=== PATIENT | female | born 1985 | race Asian ===

== ENCOUNTER 2017-05-19 21:18 | Emergency (ER) | payer OTHER ==
[~2017-05-19] VITALS: Wt 55.0 kg
--- NOTE | 2017-05-19 21:53 | ERD ---
ER Documentation Chief Complaint Date/Time DATE: 05/19/17 TIME: 21:50 Chief Complaint chest pain on and off x 1 day HPI 31-year-old female otherwise healthy comes in with left-sided chest pain that has been intermittent for the past day. Patient stated it has been intermittent , worsened this evening after she had washed the dishes and describes as 10 out of 10 pain that is in the left chest and diffuse. It starts in the left upper chest and states it goes down to her left lower chest. It is sharp, and worse with any breathing or chest movement. She denies trauma, hemoptysis, fever or cough. She is PERC negative. ROS All systems reviewed and are negative except as per history of present illness. Medications Home Meds Active Scripts Ibuprofen* (Motrin*) 600 Mg Tab, 600 MG PO Q6, #30 TAB Prov:DOROTHY JUAREZ PA-C 05/19/17 Allergies Allergies: Coded Allergies: No Known Drug Allergies (Verified Allergy, Unknown, 05/19/17) PMhx/Soc Medical and Surgical Hx: pt denies Medical Hx History of Surgery: Yes (left wrist ganglian cyst removal ) Anesthesia Reaction: No Hx Alcohol Use: No Hx Substance Use: No Hx Tobacco Use: No Smoking Status: Never smoker Physical Exam Vitals Vital Signs Date Time Temp Pulse Resp B/P Pulse Ox O2 Delivery O2 Flow Rate FiO2 05/20/17 00:10 97.5 70 12 100/54 98 Room Air 05/19/17 21:24 99.1 94 20 124/57 100 Physical Exam General: Well-developed, well-nourished. The patient appears in no acute distress. HEENT: Head is normocephalic, atraumatic. No scleral icterus. Neck: Supple. Nontender. Lungs: Clear to auscultation. Normal air movement. Heart: Regular rate and rhythm. S1 and S2 are normal. No murmurs, gallops, or rubs. Abdomen: Soft, nontender, nondistended. Bowel sounds are normoactive. Extremities: No clubbing or cyanosis. Normal pulses. Moving extremities x 4. No weakness. Neurologic: Alert and oriented 3. No focal deficits. Skin: Normal turgor. No rash or lesions. Psych: Mildly anxious appearing. Result Diagram: 05/19/17214905/19/172149 Results 24 hrs Laboratory Tests Test 05/19/17 21:50 05/19/17 22:00 White Blood Count 6.610^3/ul Red Blood Count 4.6110^6/ul Hemoglobin 12.5g/dl Hematocrit 38.3% Mean Corpuscular Volume 83.1fl Mean Corpuscular Hemoglobin 27.1pg Mean Corpuscular Hemoglobin Concent 32.6g/dl Red Cell Distribution Width 12.5% Platelet Count 08671^3/UL Mean Platelet Volume 9.1fl Neutrophils % 62.8% Lymphocytes % 26.6% Monocytes % 7.1% Eosinophils % 2.4% Basophils % 0.8% Nucleated Red Blood Cells % 0.0/100WBC Neutrophils # 4.110^3/ul Lymphocytes # 1.810^3/ul Monocytes # 0.510^3/ul Eosinophils # 0.210^3/ul Basophils # 0.110^3/ul Nucleated Red Blood Cells # 0.010^3/ul D-Dimer 314.94ng/ml D-Dimer Comment Sodium Level 137mmol/L Potassium Level 4.0mmol/L Chloride Level 103mmol/L Carbon Dioxide Level 26mmol/L Anion Gap 12 Blood Urea Nitrogen 18mg/dl Creatinine 1.03mg/dl Glucose Level 91mg/dl Calcium Level 9.3mg/dl Total Bilirubin 0.0mg/dl Direct Bilirubin 0.00mg/dl Indirect Bilirubin 0.0mg/dl Aspartate Amino Transf (AST/SGOT) 16IU/L Alanine Aminotransferase (ALT/SGPT) 21IU/L Alkaline Phosphatase 51IU/L Troponin I < 0.012ng/ml Total Protein 7.6g/dl Albumin 4.9g/dl Globulin 2.70g/dl Albumin/Globulin Ratio 1.81 Lipase 413U/L Urine Color STRAW Urine Clarity CLEAR Urine pH 7.0 Urine Specific [place] 1.012 Urine Ketones NEGATIVEmg/dL Urine Nitrite NEGATIVEmg/dL Urine Bilirubin NEGATIVEmg/dL Urine Urobilinogen NEGATIVEmg/dL Urine Leukocyte Esterase NEGATIVELeu/ul Urine Microscopic RBC 1/HPF Urine Microscopic WBC 0/HPF Urine Bacteria FEW/HPF Urine Hemoglobin 1+mg/dL Urine Glucose NEGATIVEmg/dL Urine Total Protein NEGATIVEmg/dl Current Medications Medications (Trade) Dose Ordered Sig/Ty Route PRN Reason Start Time Stop Time Status Last Admin Dose Admin Ibuprofen (Motrin) 600 mg ONCE ONCE PO 05/19/17 23:00 05/19/17 23:01 DC 05/19/17 23:04 DIAGNOSTIC IMAGING REPORT Patient: TOMMY CADET : 1985 Age: 31 Sex: F MR #: [id number] DOS: 05/19/17 2140 Ordering MD: DOROTHY JUAREZ PA-C Location: [facility] Room/Bed: PROCEDURE: XR Chest. CLINICAL INDICATION: Chest pain. TECHNIQUE: Single frontal view of the chest. COMPARISON: None. FINDINGS: The cardiomediastinal silhouette is within normal limits. The lungs are clear. Likely nipple shadow at the left lung base. No signs of pleural fluid or pneumothorax are seen. The osseous structures and soft tissues are unremarkable. IMPRESSION: No evidence for active cardiopulmonary disease. RPTAT: [facility] Physician Monika Date Time Electronically viewed and signed by Physician Monika on 05/19/2017 23:19 RS/ CC: DOROTHY JUAREZ PA-C Procedures/MDM 12-lead EKG(interpreted by supervising physician): Dr. Liao Rate/Rhythm: Normal Sinus Rhythm, rate of 83 QRS, ST, T-waves: No changes consistent w/ acute ischemia, no intervals, no dysrhythmias, no ectopy Impression: No evidence of ischemia or arrhythmia MDM: 31 yo female comes to the ER with chest pain, rule out ACS, pulmonary embolus, electrolyte abnormalities, pneumonia, pneumothorax. Patient was given ibuprofen in the emergency department, her pain is reassessed and she states that she is feeling much better at this time. History is not concerning for thoracic dissection. Troponin was negative, d-dimer was also negative. All labs are unremarkable. Chest x-ray was performed and also normal. Patient was advised to follow-up with her primary care doctor to get a referral to see potato chip frier, she was advised to follow-up outpatient which I feel is reasonable. She was given a copy of her EKG, labs and chest x-ray. Departure Diagnosis: Primary Impression: Chest pain Condition: Good DOROTHY JUAREZ PA-C May 19, 2017 21:53
[2017-05-19 22:27] LABS: ADD SCAN DIFF NO
[2017-05-19 22:30] LABS: BASOPHIL # 0.1 10^3/ul (0.0-0.1); BASOPHILS % 0.8 % (0.0-2.0); EOSINOPHILS # 0.2 10^3/ul (0.0-0.5); EOSINOPHILS % 2.4 % (0.0-7.0); HEMATOCRIT 38.3 % (37.0-47.0); HEMOGLOBIN 12.5 g/dl (12.0-16.0); LYMPHOCYTES # 1.8 10^3/ul (0.8-2.9); LYMPHOCYTES % 26.6 % (15.0-51.0); MEAN CORPUSCULAR HEMOGLOBIN 27.1 pg (29.0-33.0); MEAN CORPUSCULAR HGB CONC 32.6 g/dl (32.0-37.0); MEAN CORPUSCULAR VOLUME 83.1 fl (82.0-101.0); MEAN PLATELET VOLUME 9.1 fl (7.4-10.4); MONOCYTE # 0.5 10^3/ul (0.3-0.9); MONOCYTES % 7.1 % (0.0-11.0); NEUTROPHIL # 4.1 10^3/ul (1.6-7.5); NEUTROPHILS % 62.8 % (39.0-77.0); PLATELET COUNT 307 10^3/UL (140-415); RED BLOOD COUNT 4.61 10^6/ul (4.20-5.40); RED CELL DISTRIBUTION WIDTH 12.5 % (11.5-14.5); WHITE BLOOD COUNT 6.6 10^3/ul (4.8-10.8)
[2017-05-19 22:34] LABS: ADD UMIC YES; UR ASCORBIC ACID NEGATIVE (NEGATIVE); UR BACTERIA FEW /HPF (NONE SEEN); UR BILIRUBIN (Dip) NEGATIVE (NEGATIVE); UR BLOOD (Dip) 1+ mg/dL (NEGATIVE); UR CLARITY CLEAR (CLEAR); UR COLOR STRAW (YELLOW); UR GLUCOSE (Dip) NEGATIVE (NEGATIVE); UR KETONES (Dip) NEGATIVE (NEGATIVE); UR LEUKOCYTE ESTERASE (Dip) NEGATIVE Leu/ul (NEGATIVE); UR NITRITE (Dip) NEGATIVE (NEGATIVE); UR RBC 1 /HPF (0-5); UR SPECIFIC GRAVITY (Dip) 1.012 (1.003-1.030); UR TOTAL PROTEIN (Dip) NEGATIVE (NEGATIVE); UR UROBILINOGEN (Dip) NEGATIVE (NEGATIVE)
[2017-05-19 22:47] LABS: ALANINE AMINOTRANSFERASE 21 IU/L (13-69); ALBUMIN 4.9 g/dl (3.3-4.9); ALBUMIN/GLOBULIN RATIO 1.81; ALKALINE PHOSPHATASE 51 IU/L (42-121); ANION GAP 12 (8-16); ASPARTATE AMINO TRANSFERASE 16 IU/L (15-46); BLOOD UREA NITROGEN 18 mg/dl (7-20); CALCIUM 9.3 mg/dl (8.4-10.2); CARBON DIOXIDE 26 mmol/L (21-31); CHLORIDE 103 mmol/L (97-110); CREATININE 1.03 mg/dl (0.44-1.00); GLUCOSE 91 mg/dl (70-220); SODIUM 137 mmol/L (135-144); TOTAL PROTEIN 7.6 g/dl (6.1-8.1)
[2017-05-19] MEDS ORDERED: IBUPROFEN 600 MG TAB PO ONE (23:00)
[2017-05-19 23:05] LABS: TROPONIN-I < 0.012 ng/ml (0.00-0.12)
--- NOTE | 2017-05-19 23:19 | RADRPT ---
PROCEDURE: XR Chest. CLINICAL INDICATION: Chest pain. TECHNIQUE: Single frontal view of the chest. COMPARISON: None. FINDINGS: The cardiomediastinal silhouette is within normal limits. The lungs are clear. Likely nipple shadow at the left lung base. No signs of pleural fluid or pneumothorax are seen. The osseous structures a nd soft tissues are unremarkable. IMPRESSION: No evidence for active cardiopulmonary disease. RPTAT: [facility] Physician Monika Date Time Electronically viewed and signed by Sanjana Chinchilla Physician on 05/19/2017 23:19 RS/
[2017-05-19 23:41] LABS: D-DIMER 314.94 ng/ml (<460)
[2017-05-19] MEDS ORDERED: IBUP-1542 PO (23:58)
[2017-05-20 00:10] VITALS: BP 100/54; PULSE 70; RESP 12; TEMP 97.5
== END 2017-05-20 00:12 | disposition home or self-care (01) ==
LOC: FTE 21:18
DX: R07.9 Chest pain, unspecified (principal)
CPT/HCPCS: 36415; 71010; 80053; 81001; 83690; 84484; 85025; 85378; 93005